=== PATIENT | female | born 1985 | race Caucasian/White ===

== ENCOUNTER 2022-03-14 15:00 | Emergency (ER) | payer OTHER, SELFPAY ==
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
--- NOTE | 2022-03-14 15:02 | ECG_ITS ---
Test Reason : DIZZINESS Blood Pressure : / mmHG Vent. Rate : 072 BPM Atrial Rate : 072 BPM P-R Int : 164 ms QRS Dur : 082 ms QT Int : 372 ms P-R-T Axes : 040 041 031 degrees QTc Int : 407 ms Normal sinus rhythm Normal ECG No previous ECGs available Referred By: Generic ED Physician Electronically Signed By:NATAN BOLANOS
[2022-03-14 15:03] VITALS: BP 114/78; PULSE 82; RESP 18; TEMP 36.1; O2SAT 97; BMI 41.3
[2022-03-14 15:16] LABS: MANUAL DIFF FLAG NO
[2022-03-14 15:18] LABS: Basophils Percent Auto 0.5 % (0-2); Eosinophils Absolute Auto 0.3 X10*3/uL (0.0-0.4); Hematocrit 44.4 % (37.0-47.0); Hemoglobin 14.9 g/dl (12.0-16.0); Imm Gran Abs Auto 0.02 X10*3/uL (0.00-0.03); Imm Gran Pct Auto 0.3 % (0.0-0.4); Lymphocytes Absolute Auto 2.9 X10*3/uL (1.2-4.9); Lymphocytes Percent Auto 38.3 % (20-40); Mean Corpuscular HGB Conc 33.6 g/dl (31.0-35.0); Mean Corpuscular Hemoglobin 29.4 pg (27.0-33.0); Mean Corpuscular Volume 87.7 fL (80.0-98.0); Mean Platelet Volume 10.5 fL (9.4-12.3); Monocytes Absolute Auto 0.5 X10*3/uL (0.1-1.2); Neutrophils Absolute Auto 3.8 x10*3/uL (2.0-8.3); Neutrophils Percent Auto 49.9 % (45-73); Platelet Count 250 X10*3/uL (160-400); Red Blood Count 5.06 X10*6/uL (4.20-5.50); White Blood Count 7.7 X10*3/uL (4.8-10.8)
[2022-03-14 15:33] LABS: Appearance Urine Clear; Color Urine Yellow; Glucose Urine UA Negative (Negative); Leukocyte Esterase Urine Small (1+) (Negative); Nitrite Urine Negative (Negative); PH 5.5 (5.0-9.0); Specific Gravity - Urine >= 1.030 (1.005-1.025); UMIC TRIGGER UACC YES; Urine Blood Negative (Negative); Urine Ketones Negative (Negative); Urine Protein Negative (Neg-Trace)
[2022-03-14 15:34] LABS: UPreg QC Valid YES; Urine Pregnancy NEGATIVE (NEGATIVE)
[2022-03-14 15:37] LABS: Troponin-I High Sensitivity < 3.5 ng/L (<3.5-17.0)
[2022-03-14 15:39] LABS: Alanine Aminotransferase 29 U/L (0-31); Albumin Level 4.3 g/dL (3.5-5.0); Alkaline Phosphatase 54 U/L (39-117); Anion Gap 14 (12-20); Aspartate Amino Transferase 17 U/L (5-31); Bilirubin Total 0.3 mg/dL (0.0-1.0); Blood Urea Nitrogen 18 mg/dL (9-16); Calcium 9.4 mg/dL (8.4-10.2); Carbon Dioxide 27 mmol/L (22-29); Chloride 103 mmol/L (96-108); Creatinine Clr Calc Pharmacy 132.9; Estimated Glomerular Filt Rate > 60; Glucose Random 88 mg/dL (60-115); Potassium 4.4 mmol/L (3.3-5.1); Sodium 140 mmol/L (135-145); Total Protein 7.7 g/dL (6.5-8.0)
[2022-03-14 15:45] LABS: Bacteria Urine 1+ (None Seen); Hyaline Casts Urine 0-2 /LPF (0-2); RBC Urine 0-2 /HPF (0-2); UACC Culture Trigger YES; WBC Urine 0-5 /HPF (0-5)
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
[2022-03-14] MEDS: Meclizine HCl 25 MG TABLET 50 MG PO (20:45)
[2022-03-14 21:52] LABS: COVID-19 Test Negative (Negative); IDNOW Serial# 16C4AD1C
== END 2022-03-14 22:03 | disposition home or self-care (01) ==
PROVIDERS: Emergency Provider Internal Medicine; PCP Internal Medicine
DX: H81.13 Benign paroxysmal vertigo, bilateral (principal); M54.50 Low back pain, unspecified; M54.2 Cervicalgia; Z20.822 Contact with and (suspected) exposure to COVID-19; Z79.899 Other long term (current) drug therapy
CPT/HCPCS: 36415; 72040; 80053; 81001; 81025; 84484; 85025; 87086; 87147; 87635; 93005; 99283

== ENCOUNTER → 2022-12-20 10:02 | Outpatient (BNVA) | payer OTHER, SELFPAY | PROVIDERS: PCP Internal Medicine; Visit Provider Physician Assistant Surgical ==

== ENCOUNTER 2023-01-17 14:40 | Outpatient (AMB) | payer OTHER, SELFPAY ==
--- NOTE | 2023-01-17 14:41 | MHC.OFFVISWM ---
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 She heard about our program from her PPC. Her goal is to lose weight and achieve a healthy lifestyle. She reports first being concerned about her weight lifelong, highest weight to date was 305. Current weight is 272.2 with a BMI of 41.1. She has tried multiple methods of weight loss including fad diets and SWL program at [facility] without permanent results. She lives with her daughter. She currently is not working. She wakes at:?7 am, and goes to bed at?11 pm. Dinner is at 6 pm. Breakfast: coffee w 1/2 and 1/2 and equal (2 cups), bagel w eggs AM snack: skip Lunch: soup, sandwich PM snack: doritos, fruit, popsicle Dinner: meatloaf w mashed potato w veg, chicken, burgers After dinner: doritos Other snacks: ice cream, chocolate Liquids: 96 oz water, no soda, no juice Alcohol/marijuana/tobacco intake: 2-3 drinks monthly, no cannabis, 1/2 PPD x 10 years Exercise: stationary bike and treadmill at home GERD score: 6 ÁNGEL score: 0 ESS score: 11 QOL score: 106 PFSH Surgical History Hx of endoscopy Hx of wisdom tooth extraction Family History Mother Diabetes Father Hypertension Heart disease Brother No problems noted. Daughter No problems noted. Social History Alcohol intake: current Alcohol intake frequency: holidays/special occasions only Patient Tobacco Use Status: Current everyday Tobacco user Cigarettes Per Day: 7 Review of Systems Const All systems reviewed & are unremarkable except as noted in HPI and below Physical Exam Const General: cooperative, healthy appearing and no acute distress Orientation/consciousness: patient oriented x3 HEENT Head: Yes normal to inspection Ears: hearing grossly normal bilaterally General nose exam: Normal external nose present Face and sinus: Yes normal facial exam Eyes General: appearance normal, both eyes and all related structures Resp Effort & Inspection: normal respiratory effort Auscultation: clear to auscultation bilaterally Cardio Rate: regular rate Rhythm: regular rhythm Heart sounds: S1 normal heart sound present and S2 normal heart sound present GI Inspection: Yes normal to inspection, No distended and Yes obesity Palpation (GI): Soft to palpation, nontender and no guarding Auscultation: normal bowel sounds Skin General skin exam: no rashes or lesions noted Neuro General: patient oriented x3 Extrem General: No edema Psych Appearance: grossly normal Mental Status: mental status grossly normal Speech and movement: Normal speech and movement present Affect: normal affect Attitude: cooperative Assessment & Plan Assessment & Plan (1) Morbid obesity: Code(s): E66.01 - Morbid (severe) obesity due to excess calories Plan: This is a?37 yo female who will start our SWL program to prepare for bariatric surgery.? Blood work, h pylori , CXR, ECG, Abd US and UGI have been ordered. She is being scheduled for RD and BH initial consultations. She will start SWL classes and watch the first three videos before her next appointment. ? Adequate sleep of 7-8 hours per night discussed, awakening at 7 am and going to bed at 11 pm ? Purchase body composition analyzer scale (Adele marino or Asif recommended) and check weight weekly. The best time to do this is first thing in the morning after going to the bathroom. 1. Nutritional counseling: Be sure to careful read the number of scoops per shake Start with 3 Orgain shakes ([employer], [employer], [employer], [employer]) First shake (2 scoops in 8 oz low fat unsweetened almond milk or water) at 8am-10am, Second shake, (1 scoop in 8 oz low fat unsweetened almond milk or water) 12pm-2pm 1 protein bar (Zone Perfect bars at [employer], [employer], or [employer]) at 3pm-5pm. Dinner at 6pm (10 forks of protein and 10 forks of salad/vegetables). Meal to include lean meat (beef, fish, pork, turkey, chicken), cooked vegetables or a salad with olive oil and/or fruits (berries, pears, apples, kiwi). Avoid salt, breads, potatoes, rice, pasta, desserts. Another shake with 1 scoop in 8 oz unsweetened almond milk at 8pm-10pm. Try to drink 64 oz of water daily and avoid soda and juices. ?2. Each shake would be drunk slowly, like coffee in a period of 2 hours. ?3. Cut each bar in 4 pieces and eat each piece in 30 min ?to make each bar last 2 hours. ?4. I emphasized the importance of measuring accurately the food portion and measure it carefully when serving the food on the plate ?5. The meal portions include 10 full-size forks of meat and 10 full-size forks of salad. You always eat the meat portion but you can replace up to half of the forks of salad/vegetables with rice, potatoes or pasta, or a fruit ?if you like. The less you do it the better weight loss will be. ?6. One full-size fork is what can be scooped on the fork without falling aside and not what can be bit with the fork. Use regular forks like those you find in a typical restaurant. ?7.? Please send me weight measurements as soon as possible and then once a week. Always include your diet and exercise plan. Alternatively come weekly at the office for weight checks and send me the measurements. ?8. Exercise counseling: Begin by watching a stretching for beginners video. Start slowly and begin to stretch your muscles. You should do this before and after each exercise session to prevent injury. Please join [employer] gym near your home, although you can continue to use the stationary bike and treadmill that you have in your home. Ask the business analyst project manager or one of the trainers how to use the machines if you are unfamiliar with them. Start elliptical with a resistance of 2. Increase resistance by 1 every 3 min to your most comfortable resistance with a max resistance of 8. Reduce the resistance by 1 every 3 minutes back down to 2 and repeat cycles for 300 calories. Alternatively, start treadmill with a speed of 3.0 and incline of 0, increasing incline by 1 every 3 minutes to the highest comfortable level (max 6 for now) then decrease in the same fashion. Repeat process to a goal of 300 calories. Goal of 2000 calories burned or more weekly. You may also consider use of the stationary bike. The easiest would be to chose the fat-burn or interval training program on the machine and do this until you reach the 300 calorie goal. Alternatively, you can manually adjust the resistance in a similar fashion as mentioned above, (resistance of 2-8 with a goal speed of 12 mph). Tracking calories is essential. 9. Alternatively start walking outside daily, tracking calories with a goal of 300 calories per day, daily. You can download the thaddeus [employer] which can track your time, distance and calories while walking outside. You press start in the thaddeus when you start and then stop when you are finished. 10.? It is important to avoid and for at least 18 months postoperatively and it has been discussed at the information session 11. Please get labs, EKG and chest X-Ray within 1 week. 12. Discussed and answered all questions regarding?obtained consent to participate in the [facility]?Registry. 13. Please follow the diet plan exactly, without any change. If you do not like something about the plan or you feel hungry, you need to communicate with me so I can help you revise the plan. You should not change the plan yourself. Text me at [phone] 14. Goal is to lose at least 12 pounds in the first month 15. Goal is to lose 10% of your weight before surgery, which is about 27 lbs. Ultimate weight goal: 245 lbs before surgery Patient is morbidly obese and is not considered stable at this time.?I spent a total of 70 minutes reviewing/updating records, examining the patient and counseling the patient on weight management as detailed above. (2) Snoring: Code(s): R06.83 - Snoring Plan: ESS 11, reports significant snoring and daytime fatigue will check sleep study Orders: Orders Vitamin B12 and Folate Today E66.01 - Morbid (severe) obesity due to excess calories Comprehensive Met. Panel Today E66.01 - Morbid (severe) obesity due to excess calories C Reactive Protein Today E66.01 - Morbid (severe) obesity due to excess calories Ferritin Today E66.01 - Morbid (severe) obesity due to excess calories Hemoglobin A1c Today E66.01 - Morbid (severe) obesity due to excess calories Insulin Today E66.01 - Morbid (severe) obesity due to excess calories IRON PROFILE Today E66.01 - Morbid (severe) obesity due to excess calories Lipid Panel Today E66.01 - Morbid (severe) obesity due to excess calories PTHI Today E66.01 - Morbid (severe) obesity due to excess calories TSH reflex Free T4 Today E66.01 - Morbid (severe) obesity due to excess calories Vitamin A Today E66.01 - Morbid (severe) obesity due to excess calories Vitamin B1 Today E66.01 - Morbid (severe) obesity due to excess calories Vitamin D 25-OH Total Today E66.01 - Morbid (severe) obesity due to excess calories Zinc Today E66.01 - Morbid (severe) obesity due to excess calories ECG 12 lead EKG Today E66.01 - Morbid (severe) obesity due to excess calories FL upper GI w air Today E66.01 - Morbid (severe) obesity due to excess calories Complete Blood Count Auto Diff Today E66.01 - Morbid (severe) obesity due to excess calories H Pylori Breath Test Today E66.01 - Morbid (severe) obesity due to excess calories US abdomen comp w elastography Today E66.01 - Morbid (severe) obesity due to excess calories XR chest 2V Today E66.01 - Morbid (severe) obesity due to excess calories RT home sleep study Today R06.83 - Snoring Referrals Behavioral Health Referral E66.01 - Morbid (severe) obesity due to excess calories Nutrition/Dietitian Referral E66.01 - Morbid (severe) obesity due to excess calories Coding Level of Care Code New Pt Level 5 (02188) Diagnoses Morbid obesity E66.01 Snoring R06.83 Time Spent (min) 70
[2023-01-17 14:45] VITALS: BP 128/62; PULSE 72; TEMP 35.9; O2SAT 95; BMI 41.4
== END 2023-01-17 17:23 | disposition home or self-care (01) ==
PROVIDERS: PCP Internal Medicine; Visit Provider Physician Assistant Surgical
DX: E66.01 Morbid (severe) obesity due to excess calories (principal); Z68.41 Body mass index [BMI] 40.0-44.9, adult
CPT/HCPCS: 99205

== ENCOUNTER → 2023-01-17 14:40 | Outpatient (BNVA) | payer OTHER, SELFPAY | PROVIDERS: PCP Internal Medicine; Visit Provider Physician Assistant Surgical | DX: E66.01 Morbid (severe) obesity due to excess calories (principal); R06.83 Snoring; Z68.41 Body mass index [BMI] 40.0-44.9, adult | CPT/HCPCS: 99202 ==

== ENCOUNTER 2023-01-26 09:13 | Outpatient (REF) | payer OTHER, SELFPAY ==
--- NOTE | ~2023-01-26 | XR_ITS ---
EXAMINATION: XR CHEST CLINICAL INFORMATION: Morbid obesity. COMPARISON: None available. TECHNIQUE: 2 views of the chest were obtained. FINDINGS: The lungs are moderately expanded. No focal consolidation. No pleural effusion. Cardiac silhouette is within normal limits. XR/XR chest 2V IMPRESSION: No acute abnormality.
--- NOTE | 2023-01-26 09:27 | ECG_ITS ---
Test Reason : MORBID OBESITY Blood Pressure : / mmHG Vent. Rate : 053 BPM Atrial Rate : 053 BPM P-R Int : 178 ms QRS Dur : 082 ms QT Int : 418 ms P-R-T Axes : 043 060 044 degrees QTc Int : 392 ms Sinus bradycardia with sinus arrhythmia Otherwise normal ECG When compared with ECG of 14-MAR-2022 15:08, No significant change was found Referred By: Alex Yousif Electronically Signed By:SUSAN GALLEGOS
[2023-01-26 09:37] LABS: MANUAL DIFF FLAG NO
[2023-01-26 10:03] LABS: Basophils Percent Auto 0.5 % (0-2); Eosinophils Absolute Auto 0.2 X10*3/uL (0.0-0.4); Hematocrit 45.5 % (37.0-47.0); Hemoglobin 14.6 g/dl (12.0-16.0); Imm Gran Abs Auto 0.02 X10*3/uL (0.00-0.03); Imm Gran Pct Auto 0.3 % (0.0-0.4); Mean Corpuscular HGB Conc 32.1 g/dl (31.0-35.0); Mean Corpuscular Hemoglobin 28.7 pg (27.0-33.0); Mean Corpuscular Volume 89.6 fL (80.0-98.0); Mean Platelet Volume 10.8 fL (9.4-12.3); Monocytes Absolute Auto 0.3 X10*3/uL (0.1-1.2); Monocytes Percent Auto 5.4 % (2-11); Neutrophils Absolute Auto 3.7 x10*3/uL (2.0-8.3); Neutrophils Percent Auto 58.8 % (45-73); Platelet Count 270 X10*3/uL (160-400); Red Blood Count 5.08 X10*6/uL (4.20-5.50); White Blood Count 6.3 X10*3/uL (4.8-10.8)
[2023-01-26 10:12] LABS: Estimated Average Glucose 100 mg/dL; Hemoglobin A1c % 5.1 %
[2023-01-26 11:20] LABS: Alanine Aminotransferase 37 U/L (0-31); Albumin Level 4.2 g/dL (3.5-5.0); Alkaline Phosphatase 63 U/L (39-117); Anion Gap 17 (12-20); Aspartate Amino Transferase 21 U/L (5-31); Bilirubin Total 0.7 mg/dL (0.0-1.0); Blood Urea Nitrogen 14 mg/dL (9-16); C Reactive Protein 0.98 mg/dL (< or = 0.50); Calcium 9.3 mg/dL (8.4-10.2); Carbon Dioxide 23 mmol/L (22-29); Chloride 105 mmol/L (96-108); Cholesterol 213 mg/dL; Estimated Glomerular Filt Rate > 60; Glucose Random 93 mg/dL (60-115); HDL Cholesterol 37 mg/dL; Iron 84 mcg/dL (30-160); LDL Cholesterol Calculated 139 mg/dl; Percent Iron Saturation 25 % (15-50); Potassium 4.1 mmol/L (3.3-5.1); Sodium 141 mmol/L (135-145); Total Iron Binding Capacity 333 mcg/dL (228-428); Total Protein 7.8 g/dL (6.5-8.0); Triglycerides 188 mg/dL; Unsaturated Iron Binding 249 ug/dL
[2023-01-26 11:23] LABS: Ferritin 73 ng/mL (10-122); Insulin 9 uU/mL (2-29); TSH reflex Free T4 2.36 uIU/mL (0.32-4.0); Vitamin D 25-OH Total 38.6 ng/mL (>30)
[2023-01-26 11:34] LABS: Vitamin B12 581 pg/mL (200-900)
[2023-01-28 19:38] LABS: PTHI 57 pg/mL (16-77)
[2023-01-30 20:04] LABS: Zinc 79 mcg/dL (60-130)
[2023-01-31 12:13] LABS: Vitamin B1 13 nmol/L (8-30)
[2023-02-01 03:38] LABS: Vitamin A 24 mcg/dL (38-98)
== END 2023-01-26 09:14 | disposition home or self-care (01) ==
LOC: HO.LAB 09:13
PROVIDERS: PCP Internal Medicine; Visit Provider Physician Assistant Surgical
DX: E66.01 Morbid (severe) obesity due to excess calories (principal)
CPT/HCPCS: 36415; 71046; 80053; 80061; 82306; 82607; 82728; 82746; 83036; 83525; 83540; 83970; 84425; 84443; 84590; 84630; 85025; 86140; 93005

== ENCOUNTER → 2023-01-26 09:27 | Outpatient (BNV) | payer OTHER, SELFPAY | PROVIDERS: PCP Internal Medicine; Visit Provider Internal Medicine | DX: R00.1 Bradycardia, unspecified (principal) | CPT/HCPCS: 93010 ==

== ENCOUNTER 2023-01-31 14:08 | Outpatient (AMB) | payer OTHER, SELFPAY ==
--- NOTE | 2023-01-31 14:25 | MHC.AMNUTRGE ---
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 she always does the first one with 2 scoops because she likes the taste - does not like the ones with 1 scoop Forkfulls is very confusing I can put a bunch of food on a fork Bought the bars, doesn't like them. SWL online classes: 10/02 Previous weight loss methods attempted [facility] Dietary counseling reduction Diagnosis Nutrition problem #1 overweight/obesity As related to (etiology) #1 excess energy intake and physical inactivity As evidenced by (sign/symptom) #1 high BMI Monitoring/Goals Nutrition problem monitoring total energy intake, level of knowledge/skill, total PRO intake, total CHO intake and weight Outcome progress progressing Learning/Education Readiness to learn good Stages of change action Most Recent Diabetes Results: Cholesterol 213 mg/dL 01/26/23 HDL Cholesterol 37 mg/dL 01/26/23 Triglycerides 188 mg/dL 01/26/23 Creatinine 0.78 mg/dL (0.5-1.4) 01/26/23 Blood Urea Nitrogen 14 mg/dL (9-16) 01/26/23 Sodium 141 mmol/L (135-145) 01/26/23 Potassium 4.1 mmol/L (3.3-5.1) 01/26/23 Chloride 105 mmol/L (96-108) 01/26/23 Carbon Dioxide 23 mmol/L (22-29) 01/26/23 Calcium 9.3 mg/dL (8.4-10.2) 01/26/23 AST 21 U/L (5-31) 01/26/23 ALT 37 U/L (0-31) H 01/26/23 Total Protein 7.8 g/dL (6.5-8.0) 01/26/23 Albumin 4.2 g/dL (3.5-5.0) 01/26/23 PFSH Surgical History Hx of endoscopy Hx of wisdom tooth extraction Family History Mother Diabetes Father Hypertension Heart disease Brother No problems noted. Daughter No problems noted. Social History Alcohol intake: current Alcohol intake frequency: holidays/special occasions only Patient Tobacco Use Status: Current everyday Tobacco user Cigarettes Per Day: 7 Assessment & Plan Assessment & Plan (1) Morbid obesity: Code(s): E66.01 - Morbid (severe) obesity due to excess calories Patient Instructions: do 2 shakes 2 scoops each for now, may be changed when she sees fadi. 1 bar or yogurt, and a meal 5oz protein, 5oz veg. complete online classes, f/u 03/03 2pm Coding Level of Care Code Nutr Indiv Intake (67746) Diagnoses Morbid obesity E66.01 Time Spent (min) 45
[2023-01-31 14:48] VITALS: BMI 40.0
== END 2023-01-31 15:13 | disposition home or self-care (01) ==
PROVIDERS: PCP Internal Medicine; Referring Provider Physician Assistant Surgical; Visit Provider Dietitian, Registered
DX: E66.01 Morbid (severe) obesity due to excess calories (principal)

== ENCOUNTER → 2023-01-31 14:08 | Outpatient (BNVA) | payer OTHER, SELFPAY | PROVIDERS: PCP Internal Medicine; Referring Provider Physician Assistant Surgical; Visit Provider Dietitian, Registered | DX: E66.01 Morbid (severe) obesity due to excess calories (principal); Z68.41 Body mass index [BMI] 40.0-44.9, adult; F17.210 Nicotine dependence, cigarettes, uncomplicated; Z71.3 Dietary counseling and surveillance | CPT/HCPCS: 97802 ==

== ENCOUNTER 2023-02-21 10:28 | Outpatient (AMB) | payer OTHER, SELFPAY ==
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
== END 2023-02-21 11:08 | disposition home or self-care (01) ==
LOC: HO.HBST 10:28
PROVIDERS: PCP Internal Medicine; Visit Provider Counselor Mental Health
DX: F33.1 Major depressive disorder, recurrent, moderate (principal); E66.01 Morbid (severe) obesity due to excess calories; Z68.41 Body mass index [BMI] 40.0-44.9, adult
CPT/HCPCS: 90791

== ENCOUNTER → 2023-02-21 10:28 | Outpatient (BNVA) | payer OTHER, SELFPAY | PROVIDERS: PCP Internal Medicine; Visit Provider Counselor Mental Health ==

== ENCOUNTER → 2023-02-24 10:29 | Outpatient (REF) | payer OTHER, SELFPAY | LOC: HO.SL 10:29 | PROVIDERS: PCP Internal Medicine; Visit Provider Physician Assistant Surgical | DX: Z13.89 Encounter for screening for other disorder (principal) ==

== ENCOUNTER 2023-11-30 08:39 | Day surgery (SDC) | payer OTHER, SELFPAY ==
[2023-11-30] VITALS (8 sets, daily range): BP systolic 94–121; BP diastolic 41–80; PULSE 53–72; RESP 16–18; TEMP 36.2–36.7; O2SAT 93–98; BMI 41.5; BMI 41.2
--- NOTE | ~2023-11-30 | US_ITS ---
EXAMINATION: US OBSTETRICAL ULTRASOUND CLINICAL INFORMATION: Vaginal bleeding status post . LMP August 2023. COMPARISON: None available. TECHNIQUE: Ultrasound of the maternal pelvis is performed using transabdominal and transvaginal transducers. Transvaginal imaging is performed due to inadequate visualization transabdominally. FINDINGS: Anteverted anteflexed uterus measuring 9.6 x 4.7 x 6.8 cm. There is a 1.9 x 1.6 x 1.3 cm intramural uterine lesion in the left upper body most suggestive of a fibroid. The endometrium is thickened, heterogeneous and vascular measuring up to 2.6 cm in thickness. The ovaries are normal in morphology with preserved flow at the moment of this examination. The right ovary measures 2.1 x 2.1 x 1.3 cm, 3 mL. The left ovary measures 3.2 x 1.6 x 1.5 cm, 4 mL. There is a small simple appearing cyst abutting the right ovary measuring 0.6 x 0.5 x 0.7 cm, most suggestive of an exophytic ovarian cyst or paraovarian cyst, which is almost certainly benign and for which no imaging follow-up is recommended. Small amount of free fluid in the cul-de-sac. US/US OB pelvic and transvaginal IMPRESSION: Abnormal endometrium with heterogeneous vascular contents suspicious for retained products of conception. An additional differential considerations includes arteriovenous malformation, recommend correlation with instrumentation and if indicated further evaluation with a pelvic MRI with and without IV contrast. Also, recommend clinical correlation for superimposed infection/endometritis.
[2023-11-30 09:03] LABS: MANUAL DIFF FLAG NO
[2023-11-30 09:04] LABS: Basophils Percent Auto 0.4 % (0-2); Eosinophils Absolute Auto 0.2 X10*3/uL (0.0-0.4); Eosinophils Percent Auto 2.3 % (0-4); Hematocrit 40.7 % (37.0-47.0); Hemoglobin 13.8 g/dl (12.0-16.0); Imm Gran Abs Auto 0.02 X10*3/uL (0.00-0.03); Imm Gran Pct Auto 0.3 % (0.0-0.4); Lymphocytes Absolute Auto 2.2 X10*3/uL (1.2-4.9); Lymphocytes Percent Auto 31.7 % (20-40); Mean Corpuscular HGB Conc 33.9 g/dl (31.0-35.0); Mean Corpuscular Hemoglobin 30.2 pg (27.0-33.0); Mean Corpuscular Volume 89.1 fL (80.0-98.0); Mean Platelet Volume 10.2 fL (9.4-12.3); Monocytes Absolute Auto 0.6 X10*3/uL (0.1-1.2); Monocytes Percent Auto 8.1 % (2-11); Neutrophils Percent Auto 57.2 % (45-73); Platelet Count 240 X10*3/uL (160-400); Red Blood Count 4.57 X10*6/uL (4.20-5.50)
[2023-11-30 09:20] LABS: Alanine Aminotransferase 28 U/L (0-31); Albumin Level 4.2 g/dL (3.5-5.0); Alkaline Phosphatase 58 U/L (39-117); Anion Gap 11 (12-20); Aspartate Amino Transferase 19 U/L (5-31); Bilirubin Total 0.3 mg/dL (0.0-1.0); Blood Urea Nitrogen 15 mg/dL (9-16); Calcium 9.5 mg/dL (8.4-10.2); Carbon Dioxide 29 mmol/L (22-29); Chloride 104 mmol/L (96-108); Creatinine Clr Calc Pharmacy 137.4; Estimated Glomerular Filt Rate > 60; Glucose Random 111 mg/dL (60-115); Potassium 4.2 mmol/L (3.3-5.1); Sodium 140 mmol/L (135-145); Total Protein 7.9 g/dL (6.5-8.0)
[2023-11-30 09:56] LABS: HCG Quantitative 105 mIU/mL
--- NOTE | 2023-11-30 09:59 | ED_ITS ---
HPI - General Chief complaint: Vaginal Bleeding Stated complaint: excessive vaginal bleeding Time Seen by Provider: 11/30/23 09:25 Source: patient Mode of arrival: ambulatory Limitations: no limitations History of Present Illness ED Provider: Humaira GROSS HPI Narrative: 38-year-old female with history of depression, morbid obesity and recent medical at [facility] on 11/13 who presents to the ER for evaluation of ongoing vaginal bleeding. Patient states she got medication to insert into vagina on 11/17 an , that day she had bleeding with heavy clots, vomiting. She states she has been intermittently bleeding since, at times still passing clots and tissue. She states today she was outside with her dog when she had a gush of blood and severe cramping. She denies any fever, chills, further nausea or vomiting. No vaginal discharge aside from blood. She states she is Rh negative and never got RhoGAM with her . MD Complaint: abdominal pain and vaginal bleeding Onset (ago): week(s) Pain Consistency: intermittent Location: pelvis Severity: severe Quality: Cramping Radiation: pelvis Relieving factors: none Exacerbating factors: none Associated symptoms: abdominal pain Vaginal discharge: none Vaginal bleeding: clots Related Data : 4 Para: 1 Total number of abortions (spontaneous and elective): 3 Home Medications ?Medication ?Instructions ?Recorded ?Confirmed adalimumab 40 mg/0.4 mL 40 mg subcut QWEEK 12/20/22 subcutaneous syringe kit (Freddieira(CF)) albuterol sulfate 90 mcg/actuation 2 puff inhalation Q6H PRN 12/20/22 aerosol inhaler gabapentin 600 mg tablet 600 mg PO TID 12/20/22 melatonin 10 mg capsule 10 mg PO BEDTIME PRN 12/20/22 omeprazole 40 mg capsule,delayed 40 mg PO DAILY 12/20/22 release oxycodone 10 mg tablet 10 mg PO QID PRN 12/20/22 propranolol 160 mg capsule,24 160 mg PO DAILY 12/20/22 hr,extended release sertraline 100 mg tablet 100 mg PO DAILY 12/20/22 tizanidine 4 mg capsule 4 mg PO BID PRN 12/20/22 Previous Rx's ?Medication ?Instructions ?Recorded vitamin A palmitate 3,000 mcg 3,000 mcg PO DAILY #60 caps 02/16/23 (10,000 unit) capsule Allergies Allergy/AdvReac Type Severity Reaction Status Date / Time fluconazole [From DIFLUCAN] Allergy Unknown HIVES Verified 11/30/23 08:53 Avelox Allergy Unknown hives Uncoded 11/14/19 00:00 Seasonal allergies Allergy Unknown redness Uncoded 11/14/19 00:00 Review of Systems 2 Review of Systems: Yes all other systems are reviewed and are negative [facility] Past Medical History Surgical History Hx of endoscopy Hx of wisdom tooth extraction : 4 Para: 1 Total number of abortions (spontaneous and elective): 3 Family History Family History Mother Diabetes Father Hypertension Heart disease Brother No problems noted. Daughter No problems noted. Social History Social History Alcohol intake: current Alcohol intake frequency: holidays/special occasions only Patient Tobacco Use Status: Current everyday Tobacco user Cigarettes Per Day: 7 Advance Directives: No Advance Directives Information Provided: No Physical Exam 2 Vital Signs: Vital Signs: Last Vital Signs Temp 97.8 F 11/30/23 12:10 Pulse 53 11/30/23 12:10 Resp 18 11/30/23 12:10 BP 94/41 L 11/30/23 12:10 Pulse Ox 98 11/30/23 12:10 O2 Del Method Room Air 11/30/23 12:10 BMI result Body Mass Index 41.5 Appearance: Alert. Oriented X3. No acute distress. Head: normocephalic, atraumatic. Eyes: Pupils equal, round and reactive to light. ENT: Pharynx normal. No tonsillar swelling or exudate. Neck: Normal inspection. Neck supple. CVS: Normal heart rate and rhythm. Pulses normal. Respiratory: No respiratory distress. Breath sounds normal. Abdomen: Soft, obese with diffuse lower abdominal tenderness, no guarding or rebound. +BS x4 : Normal external inspection. Small amount of bright red blood in the vaginal canal, cervical os opened with small amount of blood, no tissue or clots. No vaginal discharge. Skin: Skin warm and dry. Normal skin color. Normal skin turgor. No rashes. Extremities: No lower extremity edema. No joint swelling. Neuro/psych: Oriented X 3. No motor deficit. No sensory deficit. CN II-XII intact. Normal speech and cognition. Medications Administered Discontinued Medications Generic Name Dose Route Start Last Admin Trade Name Maurice PRN Reason Stop Dose Admin Rho Immune Globulin 300 mcg 11/30/23 11:16 11/30/23 12:02 Rho(D) Immune Globulin 300 Mcg Syringe IM 11/30/23 11:17 300 mcg ONCE ONE Administration Medical Decision Making Medical Decision Making [facility] Narrative: 30-year-old female who was 9 weeks when she had a medical on 11/13 who presents to the ER with ongoing vaginal bleeding, passing large clots and having severe pain this morning. Clinical presentation is concerning for retained products of conception. Beta hCG was added to her blood work which is elevated at 105. An ultrasound was performed which is showing concerns for retained products of conception. Patient was examined and unable to visualize or extract any tissue at the cervical os. Dr. Juarez was contacted - screen and blood type ordered per request. RhoGAM was administered as [facility]. Juarez came to evaluate the patient in the emergency department. Plan is for D and C in the OR. Patient updated on plan of care and is in agreement. Patient to go from the ER to surgery now. Differential Diagnosis Differential Diagnoses: The differential diagnosis associated with the presentation includes Retained products of conception, uterine fibroid, AVM, DUB Admission/Observation Consideration of admission/observation: Escalation of care including admission/observation considered Consult Healthcare Provider Management of the patient was discussed with: Marble Cleaner Lab Data [facility] Lab Attestation statement: I reviewed the patient's lab results. 11/30/23 09:00 11/30/23 09:00 Labs: Lab Results 11/30/23 11/30/23 Range/Units 09:00 11:22 WBC 7.0 (4.8-10.8) X10*3/uL RBC 4.57 (4.20-5.50) X10*6/uL Hgb 13.8 (12.0-16.0) g/dl Hct 40.7 (37.0-47.0) % MCV 89.1 (80.0-98.0) fL MCH 30.2 (27.0-33.0) pg MCHC 33.9 (31.0-35.0) g/dl RDW 12.0 (11.0-16.0) % Plt Count 240 (160-400) X10*3/uL MPV 10.2 (9.4-12.3) fL Immature Gran % (Auto) 0.3 (0.0-0.4) % Neut % (Auto) 57.2 (45-73) % Lymph % (Auto) 31.7 (20-40) % [place] % (Auto) 8.1 (2-11) % Eos % (Auto) 2.3 (0-4) % Baso % (Auto) 0.4 (0-2) % Lymph # (Auto) 2.2 (1.2-4.9) X10*3/uL [place] # (Auto) 0.6 (0.1-1.2) X10*3/uL Eos # (Auto) 0.2 (0.0-0.4) X10*3/uL Baso # (Auto) 0.0 (0.0-0.2) X10*3/uL Abs Immat Gran (auto) 0.02 (0.00-0.03) X10*3/uL Absolute Neuts (auto) 4.0 (2.0-8.3) x10*3/uL Absolute Nucleated RBC 0.000 (0.0-0.012) X10*3/uL Nucleated RBC % (auto) 0.0 (0.0-0.2) /100WBC Sodium 140 (135-145) mmol/L Potassium 4.2 (3.3-5.1) mmol/L Chloride 104 (96-108) mmol/L Carbon Dioxide 29 (22-29) mmol/L Anion Gap 11 L (12-20) BUN 15 (9-16) mg/dL Creatinine 0.77 (0.5-1.4) mg/dL Estim Creat Clear Calc 137.4 Estimated GFR > 60 Random Glucose 111 (60-115) mg/dL Calcium 9.5 (8.4-10.2) mg/dL Total Bilirubin 0.3 (0.0-1.0) mg/dL AST 19 (5-31) U/L ALT 28 (0-31) U/L Alkaline Phosphatase 58 (39-117) U/L Total Protein 7.9 (6.5-8.0) g/dL Albumin 4.2 (3.5-5.0) g/dL Beta HCG, Quant 105 mIU/mL Blood Type A Negative Antibody Screen NEGATIVE Independent Interpretation I performed an independent interpretation of an: Ultrasound Interpretation: Abnormal tissue in the uterus, agree with radiology read Radiology Impression Discussion of test interpretation with radiology: I have reviewed the radiologist's reading. Radiologist Impression: US/US OB pelvic and transvaginal IMPRESSION: Abnormal endometrium with heterogeneous vascular contents suspicious for retained products of conception. An additional differential considerations includes arteriovenous malformation, recommend correlation with instrumentation and if indicated further evaluation with a pelvic MRI with and without IV contrast. Also, recommend clinical correlation for superimposed infection/endometritis. External Record Review External record reviewed: Prior outpatient labs Prescription Management I considered prescription management with: Pain Medication and Antibiotic Chronic Conditions Patient?s care impacted by: Other (Depression) Critical Care Time Critical Care Time Critical Care Time: Yes Total Critical Care Time: 32 Attestation: I have personally provided critical care time exclusive of time spent on separately billable procedures. Time includes review of lab data, radiology results, discussion with consultants, and monitoring for potential decompensation. Intervention performed as documented. Discharge Plan Discharge Clinical Impression: Retained products of conception following Patient Disposition: Admitted As Inpatient Print Language: Faroese
--- NOTE | 2023-11-30 10:43 | PC.NURSE ---
pt returned from ultrasound at this time. a&ox4. vss and up to date. pt presents to ED s/p on 11/13. pt completed full course of PO prescription. slight bleeding/cramping until this morning. pt states she was outside letting dog out when large amounts of clots/painful bright red bleeding started. pt states hosing herself off outside/applying a pad and then coming to ED. upon arrival to ED - pad was soaked w/ blood. pt also verbalizing dizziness. pt seen by ED provider/aware of plan of care moving forward. no sob/wob noted. respirations even/unlabored. plan of care ongoing. call aguero placed within reach.
--- NOTE | 2023-11-30 11:29 | P.CONOB_ITS ---
CLINICAL PROJECT COORDINATOR - CN: HPI Data of Consult Consult date: 11/30/23 Primary Care Provider: Simone Garsia III, MD Consult Narrative Narrative: I was consulted on Kathie Mccoy who is a 38 year old with history of recent medical at [facility] on 11/13 with Mifepristone/misprostol presenting to the ER complaining of continuous vaginal bleeding since 11/13when she had her medical termination of associated with heavy clots, and pelvic cramping, no fever or chills, no nausea or vomiting, no vaginal discharge. Blood type is Rh negative and the patient never got RhoGAM with her . Today in the emergency room H&H 13.8/40.7, hCG quantitative 105, blood type A neg and antibody screen negative. Rhogam given in the ER today cc:: CC: [facility] Family History Family History Mother Diabetes Father Hypertension Heart disease Brother No problems noted. Daughter No problems noted. Surgical History Surgical History Hx of endoscopy Hx of wisdom tooth extraction Social History Social History Alcohol intake: current Alcohol intake frequency: holidays/special occasions only Patient Tobacco Use Status: Current everyday Tobacco user Cigarettes Per Day: 7 Use of substances other than those prescribed or required for medical reasons: No Are you DNR?: No Advance Directives: No Advance Directives Information Provided: No Meds Allergies Allergy/AdvReac Type Severity Reaction Status Date / Time fluconazole [From DIFLUCAN] Allergy Unknown HIVES Verified 11/30/23 13:06 Avelox Allergy Unknown hives Uncoded 11/30/23 13:06 Seasonal allergies Allergy Unknown redness Uncoded 11/30/23 13:06 Home Medications ?Medication ?Instructions ?Recorded ?Confirmed ?Last Taken ?Type adalimumab 40 mg/0.4 mL 40 mg subcut QWEEK 12/20/22 Unknown History subcutaneous syringe kit (Humira(CF)) albuterol sulfate 90 mcg/actuation 2 puff inhalation Q6H PRN 12/20/22 Unknown History aerosol inhaler gabapentin 600 mg tablet 600 mg PO TID 12/20/22 11/30/23 11/30/23 History melatonin 10 mg capsule 10 mg PO BEDTIME PRN 12/20/22 Unknown History omeprazole 40 mg capsule,delayed 40 mg PO DAILY 12/20/22 11/30/23 11/30/23 History release oxycodone 10 mg tablet 10 mg PO QID PRN 12/20/22 Unknown History propranolol 160 mg capsule,24 160 mg PO DAILY 12/20/22 11/30/23 11/29/23 History hr,extended release sertraline 100 mg tablet 100 mg PO DAILY 12/20/22 11/30/23 11/30/23 History tizanidine 4 mg capsule 4 mg PO BID PRN Pain 12/20/22 11/30/23 11/30/23 History CLINICAL PROJECT COORDINATOR Physical Exam Vitals Vital signs: Temp Pulse Resp BP Pulse Ox O2 Del Method 98.0 F 72 18 109/66 94 Room Air 11/30/23 08:47 11/30/23 08:47 11/30/23 08:47 11/30/23 08:47 11/30/23 08:47 11/30/23 08:47 BMI result Body Mass Index 41.5 CLINICAL PROJECT COORDINATOR - Results Labs 11/30/23 09:00 11/30/23 09:00 Labs: Short CBC 11/30/23 Range/Units 09:00 WBC 7.0 (4.8-10.8) X10*3/uL Hgb 13.8 (12.0-16.0) g/dl Hct 40.7 (37.0-47.0) % Plt Count 240 (160-400) X10*3/uL BMP 11/30/23 09:00 Sodium 140 Potassium 4.2 Chloride 104 Carbon Dioxide 29 BUN 15 Creatinine 0.77 Calcium 9.5 Liver Function 11/30/23 Range/Units 09:00 Total Bilirubin 0.3 (0.0-1.0) mg/dL AST 19 (5-31) U/L ALT 28 (0-31) U/L Alkaline Phosphatase 58 (39-117) U/L Albumin 4.2 (3.5-5.0) g/dL Assessment and Plan (1) Retained products of conception following : Status: Acute GC/CT, BV panel taken bY KHADAR Fernández. Discussed with the patient the result of the ultrasound showing retained products of conception, the options of the treatment discussed with the patient including medical treatment , suction D&C, all pros, cons, risks and benefits were discussed with the patient and the patient the decided to go ahead with Suction D&C. so a more detailed discussion about the procedure was carried on with the patient including the technique, risks including but not limited to : bleeding, infection, uterine perforation, injury to blood vessels, bowels, ureters, bladder, possible need for blood transfusion with all its risks ( HIV, Hep b or C, anaphylaxis reactions), possible need for laparoscopy, laparotomy, or hysterectomy, possible , thromboembolic events, possibility of a negative impact on future fertility because of scar tissue development inside the uterus; alternatives of this option were discussed with the patient including but not limited to, medical termination of or doing nothing. The patient decided to go ahead with Suction D&C and signed the consent. All questions answered, the patient verbalized understanding and agreed with the plan. Doxycycline 200 mg p.o. preop given to the patient. Ultrasound notified. Type and screen sent. Instructions given the patient to schedule a 2 week postoperative appointment. This note was generated with a voice recognition program. Some errors may have been overlooked during the review of this note. Sometimes these errors may affect the content or meaning of a given sentence.
[2023-11-30] MEDS: Rho(D) Immune Globulin 300 MCG SYRINGE IM (12:02)
--- NOTE | 2023-11-30 12:04 | PC.NURSE ---
medication administered per provider order.
--- NOTE | 2023-11-30 12:15 | PC.NURSE ---
dr. restrepo bedside assessing pt. pt aware of plan of care moving forward.
--- NOTE | 2023-11-30 12:32 | PC.NURSE ---
dr. womack bedside assessing pt. pt aware of plan of care moving forward. 20gIV placed in the right AC - patent/intact.
--- NOTE | 2023-11-30 12:43 | PC.NURSE ---
report given to BILLIE Valladares in short stay at this time.
[2023-11-30 12:46] LABS: Bacterial Vaginosis PCR POSITIVE (Negative); Candida Group PCR NOT DETECTED (Not Detect); Candida glab krusei PCR NOT DETECTED (Not Detect); Trichomonas vaginalis PCR NOT DETECTED (Not Detect)
--- NOTE | 2023-11-30 13:07 | PC.NURSE ---
pt transported to the OR at this time.
[2023-11-30 13:35] LABS: CT PCR NOT DETECTED (Not Detect.); NG PCR NOT DETECTED (Not Detect.)
--- NOTE | 2023-11-30 13:35 | HO.ANESPROP2 ---
HPI - Anesthesia Eval Consult details Narrative: 38yo female patient for suction D&C for retained products of conception following medical on 11/[facility] at [facility]. Reportedly bleeding since 10/2423 . H/H today 13.8/40.7 No signs of infection. R$eceived Rhogam in ER [facility] Active Problems Active Problems: All Active Problems (Updated 11/30/23 @ 13:40 by Steph Mayfield MD) Retained products of conception following (Acute)- patient states bleeding a lot-pouring down legs Major depressive disorder, recurrent, moderate (Acute) Snoring (Acute) Morbid obesity (Acute) BMI 41.2. Being seen @ [facility] [place] Family History Family History Mother Diabetes Father Hypertension Heart disease Brother No problems noted. Daughter No problems noted. Family history of problems with anesthesia: No Surgical History Surgical History Hx of endoscopy Hx of wisdom tooth extraction History of Problems with Anesthesia: No Social History Social History Alcohol intake: current Alcohol intake frequency: holidays/special occasions only Patient Tobacco Use Status: Current everyday Tobacco user Cigarettes Per Day: 7 Use of substances other than those prescribed or required for medical reasons: No Are you DNR?: No Advance Directives: No Advance Directives Information Provided: No Meds Allergies Allergy/AdvReac Type Severity Reaction Status Date / Time fluconazole [From DIFLUCAN] Allergy Unknown HIVES Verified 11/30/23 13:06 Avelox Allergy Unknown hives Uncoded 11/30/23 13:06 Seasonal allergies Allergy Unknown redness Uncoded 11/30/23 13:06 Home Medications ?Medication ?Instructions ?Recorded ?Confirmed ?Last Taken ?Type adalimumab 40 mg/0.4 mL 40 mg subcut QWEEK 12/20/22 Unknown History subcutaneous syringe kit (Humira(CF)) albuterol sulfate 90 mcg/actuation 2 puff inhalation Q6H PRN 12/20/22 Unknown History aerosol inhaler gabapentin 600 mg tablet 600 mg PO TID 12/20/22 11/30/23 11/30/23 History melatonin 10 mg capsule 10 mg PO BEDTIME PRN 12/20/22 Unknown History omeprazole 40 mg capsule,delayed 40 mg PO DAILY 12/20/22 11/30/23 11/30/23 History release oxycodone 10 mg tablet 10 mg PO QID PRN 12/20/22 Unknown History propranolol 160 mg capsule,24 160 mg PO DAILY 12/20/22 11/30/23 11/29/23 History hr,extended release sertraline 100 mg tablet 100 mg PO DAILY 12/20/22 11/30/23 11/30/23 History tizanidine 4 mg capsule 4 mg PO BID PRN Pain 12/20/22 11/30/23 11/30/23 History Exam Height,Weight and Vital Signs: Height 5 ft 8 in Weight 122.924 kg Last Vital Signs Temp 97.7 F 11/30/23 13:19 Pulse 57 11/30/23 13:19 Resp 16 11/30/23 13:19 BP 109/72 11/30/23 13:19 Pulse Ox 93 11/30/23 13:19 O2 Del Method Room Air 11/30/23 13:19 Pertinent Lab Results Pertinent Lab Results: Laboratory Tests 11/30/23 11/30/23 09:00 11:22 WBC 7.0 RBC 4.57 Hgb 13.8 Hct 40.7 MCV 89.1 MCH 30.2 MCHC 33.9 RDW 12.0 Plt Count 240 MPV 10.2 Immature Gran % (Auto) 0.3 Neut % (Auto) 57.2 Lymph % (Auto) 31.7 Dixon % (Auto) 8.1 Eos % (Auto) 2.3 Baso % (Auto) 0.4 Lymph # (Auto) 2.2 Dixon # (Auto) 0.6 Eos # (Auto) 0.2 Baso # (Auto) 0.0 Abs Immat Gran (auto) 0.02 Absolute Neuts (auto) 4.0 Absolute Nucleated RBC 0.000 Nucleated RBC % (auto) 0.0 Sodium 140 Potassium 4.2 Chloride 104 Carbon Dioxide 29 Anion Gap 11 L BUN 15 Creatinine 0.77 Estim Creat Clear Calc 137.4 Estimated GFR > 60 Random Glucose 111 Calcium 9.5 Total Bilirubin 0.3 AST 19 ALT 28 Alkaline Phosphatase 58 Total Protein 7.9 Albumin 4.2 Beta HCG, Quant 105 T. vaginalis (PCR) NOT DETECTED Bact Vaginosis (PCR) POSITIVE A C. krusei/glabrata (PCR) NOT DETECTED Mena group (PCR) NOT DETECTED Blood Type A Negative Antibody Screen NEGATIVE Airway Mallampati Class: II TM Dist: >3cm Neck ROM: Full Loose/Missing/Broken Teeth: No (Denies broken, loose, missing teeth) Heart: RRR Lungs: CTAB Other: Piercings both ears, nipples + ring Right ear. Patient states unable to remove. Aware of possiblity of injury, ardon, loss and wishes to proceed. Jewelry form signed Assessment and Plan Assessment Anesthesia Assessment: Anesthesia Plan Discussed and Chart Reviewed Final Anesthetic Review Family History of Problems with Anesthesia: No History of Problems with Anesthesia: No NPO: Yes ASA Class: III and Emergency Final Preanesthetic Review: No Changes in Pt Med Stat, Meds/Allgs Chart Reviewed, Consent Obtained/Reviewed and Anes Risks/Benef Reviewed Patient Risk: Intermediate Procedure Risk: Intermediate Assessment/Block/Sedation in SS: Assess/Block/Sedation-SS Anesthetic Plan Anesthetic Plan: GA Disposition: Standard PACU
[2023-11-30] MEDS: Doxycycline Monohydrate 100 MG CAPSULE 200 MG PO (13:56)
[2023-11-30] MEDS: Lactated Ringers 1,000 ML 100 ML IVCONT (13:57)
--- NOTE | 2023-11-30 16:54 | P.BOP_ITS ---
Brief Operative Note Date of Service: 11/30/23 Pre-op diagnosis: Products of conception Post-op diagnosis: same Procedure: Suction D&C Surgeon: Petey Juarez MD Anesthesia: MAC Was an Coating Machine Operator used for this Procedure?: No Estimated blood loss (mL): 100 Pathology: other (Retained Products of conception) Condition: stable Disposition: PACU
--- NOTE | 2023-11-30 16:55 | P.OP_ITS ---
Operative Note Operative Note Date of Service: 11/30/23 Narrative: Preop diagnosis: Retained products of conception Operation: suction D and C Postop diagnosis: The same EBL: Minimal Anesthesia: GLMA Kitchen And Bath Designer: None Pathology: Retained Products of conception Procedure: The patient was put in a dorsal distal mid position was scrubbed and draped in the usual sterile fashion. A sterile speculum was inserted inside the patient's vagina the anterior lip of the cervix was grasped with single-tooth tenaculum the cervix was dilated up to 7 mm. Under ultrasonographic guidance flexible 7. Suction tip was introduced inside the patient ran cavity till the fundus was hit then turning the suction 360 degrees around products of conception was sucked out toward the uterine cavity. The suction tip was taken out of the patient uterine cavity sharp curettings was followed in 4 quadrants of the uterus till a gritty feeling was felt. The suction tip was reintroduced under ultrasonographic guidance and intrauterine blood was sucked. The suction tip was taken out. Single-tooth tenaculum was removed hemostasis assured using pressure. The patient tolerated the procedure well and was transferred to the PACU in a stable condition.
[2023-12-01 07:08] VITALS: BP 00/00; PULSE 67; RESP 18; TEMP 36.2; O2SAT 96
== END 2023-11-30 17:56 | disposition home or self-care (01) ==
LOC: HO.ED 12:26 → HO.SSS 12:38
PROVIDERS: Physician Assistant; Emergency Provider Emergency Medicine; PCP Internal Medicine; Visit Provider Obstetrics & Gynecology
PROC: (CPT 59812; principal; 2023-11-30 14:00)
DX: O03.4 Incomplete spontaneous abortion without complication (principal)
CPT/HCPCS: 59812; 0352U; 0353U; 36415; 76801; 76817; 76830; 76856; 76998; 80053; 84702; 85025; 86850; 86900; 86901; 88305; 99284; J1885; J2405; J2590; J2704; J2790; J3010

== ENCOUNTER → 2023-11-30 12:15 | Outpatient (BNV) | payer OTHER, SELFPAY | PROVIDERS: Emergency Provider Emergency Medicine; PCP Internal Medicine; Visit Provider Obstetrics & Gynecology | DX: O03.4 Incomplete spontaneous abortion without complication (principal) | CPT/HCPCS: 59812; 99283 ==

== ENCOUNTER 2023-12-19 10:04 | Outpatient (REF) | payer OTHER, SELFPAY ==
[2023-12-19 11:13] LABS: HCG Quantitative < 2 mIU/mL
== END 2023-12-19 10:05 | disposition home or self-care (01) ==
LOC: HO.LAB 10:04
PROVIDERS: Visit Provider Obstetrics & Gynecology
DX: O03.4 Incomplete spontaneous abortion without complication (principal)
CPT/HCPCS: 36415; 84702; 99212

== ENCOUNTER 2023-12-19 10:56 | Outpatient (AMB) | payer OTHER, SELFPAY ==
--- NOTE | 2023-12-19 11:21 | MHC.OFFVIS ---
Vital Signs 12/19/23 11:27 Height 5 ft 8 in Weight 268 lb BMI 40.7 Intake Visit Reasons: post op/hcg follow up Manual Plate Filler Required: No Information Interpreted: non-clinical & clinical Accompanied by: Self / Same As Patient Allergies fluconazole [From DIFLUCAN] Allergy (Unknown, Verified 12/19/23 11:27) HIVES Avelox Allergy (Unknown, Uncoded 12/19/23 11:27) hives Seasonal allergies Allergy (Unknown, Uncoded 12/19/23 11:27) redness HPI Comments Details: The patient is presenting post suction D&C for retained products of conception, no complaints minimal vaginal bleeding no feverishness chills or abdominal pain. The pathology showed the following: Products of conception (curettage): -Decidua with ectatic vessels, organizing fibrin thrombi, and focal acute inflammation and necrosis. -Immature chorionic villi with focal nucleated red blood cells. -Chronic endometritis with inactive glands and focal breakdown PFSH Medical History (Updated 12/19/23 @ 11:54 by Petey Juarez MD) Migraine headache with aura Surgical History Hx of endoscopy Hx of wisdom tooth extraction Family History Mother Diabetes Father Hypertension Heart disease Brother No problems noted. Daughter No problems noted. Social History Alcohol intake: current Alcohol intake frequency: holidays/special occasions only Patient Tobacco Use Status: Current everyday Tobacco user Cigarettes Per Day: 7 Review of Systems Const All systems reviewed & are unremarkable except as noted in HPI and below Reports as per HPI and Reports no additional complaints GI Reports no additional complaints Reports no additional complaints Physical Exam Vital Signs: BMI result Body Mass Index 40.7 Assessment & Plan Assessment & Plan (1) Retained products of conception following : Comment: Status post suction D&C Code(s): O03.4 - Incomplete spontaneous without complication Category: Medical Plan: Discussed with the patient the results of hCG less than 2 and pathology results. Instructions given the patient to call in case of recurrence of pelvic pain and or bleeding, temperature above 100.4. All questions answered, the patient verbalized understanding (2) Family planning: Code(s): Z30.09 - Encounter for other general counseling and advice on contraception Category: Social Hx Plan: Discussed with the patient the different options of control including control pills/Nuvaring, DMPA, different types of IUD ?s, sterilization. All the pros, cons, risks and benefits of each were discussed with the patient. The patient decided to go ahead with an IUD, so a more detailed discussion was carried on including types (Progesterone, Copper), mechanism of action, risks (infection, uterine perforation, failure with ectopic , septic AB, dysmenorrhea with Paraguard, others) benefits (efficient contraceptive method, hypo menorrhea with Progesterone IUD, others) GC/CG were recent taken and were negative and the patient was asked to call day one of next cycle for IUD insertion. Coding Level of Care Code Est Pt Level 3 (04413) Diagnoses Retained products of conception following O03.4 Family planning Z30.09
[2023-12-19 11:27] VITALS: BMI 40.7
== END 2023-12-19 11:55 | disposition home or self-care (01) ==
PROVIDERS: PCP Internal Medicine; Visit Provider Obstetrics & Gynecology
DX: O03.4 Incomplete spontaneous abortion without complication (principal); Z30.09 Encounter for other general counseling and advice on contraception
CPT/HCPCS: 99024